=== PATIENT | male | born 1955 ===

== ENCOUNTER 2019-02-01 11:48 | Emergency (ER) | payer OTHER ==
[2019-02-01 12:39] LABS: Absolute Lymphocytes (CBC) 1.1 K/uL (0.7-4.9); Absolute Monocytes 0.6 K/uL (0.1-1.3); Absolute Neutrophil 4.3 K/uL (1.8-8.0); Basophils % 0.8 % (0-1.3); Eosinophils % 1.1 % (0-4.4); Hematocrit 48.2 % (39.6-49.0); MPV 8.8 fL (7.6-11.3); Monocytes % 9.7 % (3.3-12.3); RBC Red Blood Cell Count 5.28 M/uL (4.33-5.43)
[2019-02-01 12:40] LABS: Protime INR 0.95
[2019-02-01] MEDS ORDERED: NA CHLORIDE 0.9% 1,000 ML ONE (12:45)
[2019-02-01 12:57] LABS: ALT/SGPT 38 U/L (12-78); AST/SGOT 27 U/L (15-37); Albumin 3.9 g/dL (3.4-5.0); Alkaline Phosphatase 61 U/L (45-117); BUN Blood Urea Nitrogen 18 mg/dL (7-18); Bicarbonate 25 mmol/L (21-32); Bilirubin Direct < 0.1 mg/dL (0-0.2); Bilirubin Total 0.2 mg/dL (0.2-1.0); Glucose Level 116 mg/dL (74-106); Magnesium 2.3 mg/dL (1.8-2.4); NT PRO-BNP 37 pg/mL (<125); Potassium 4.3 mmol/L (3.5-5.1); Protein, Total 7.5 g/dL (6.4-8.2); Sodium Level 143 mmol/L (136-145); Troponin (Emerg Dept Use Only) < 0.02 ng/mL (0.0-0.045)
[2019-02-01 14:07] LABS: Urine Blood NEGATIVE (NEG); Urine Glucose NEGATIVE (NEG); Urine Protein NEGATIVE (NEG)
--- NOTE | 2019-02-01 14:36 | RAD REPORT ---
EXAM DESCRIPTION: Isaias Single View02/01/2019 1:27 pm CLINICAL HISTORY: Hypertension COMPARISON: none FINDINGS: The lungs appear clear of acute infiltrate. The heart is normal size IMPRESSION: No acute abnormalities displayed
--- NOTE | 2019-02-01 15:28 | RAD REPORT ---
EXAM DESCRIPTION: CT - Head Brain Wo Cont - 02/01/2019 3:02 pm CLINICAL HISTORY: Headache COMPARISON: None. TECHNIQUE: Computed axial tomography of the head was obtained. IV contrast was not requested. All CT scans are performed using dose optimization technique as appropriate and may include automated exposure control or mA/KV adjustment according to patient size. FINDINGS: An intracranial bleed is not seen . The ventricles are normal in caliber. No extra-axial fluid collection is noted. Fluid within the sinuses/ mastoids is not seen. IMPRESSION: No acute intracranial abnormality is seen. If patient's symptoms persist MRI of the bra in would be recommended.
--- NOTE | 2019-02-01 15:54 | ER ---
Nurse's Notes [facility] Name: Gaetano Atkins III Age: 63 yrs Sex: Male : 1955 Arrival Date: 02/01/2019 Time: 11:50 Bed 5 Private MD: Diagnosis: Hypertension;Near Syncope Presentation: 02/01 11:57 Presenting complaint: Patient states: SUBJECTIVELY HIGH BP AND NEAR-SYNCOPE. Transition bp of care: patient was not received from another setting of care. Onset of symptoms is unknown. Risk Assessment: Do you want to hurt yourself or someone else? Patient reports no desire to harm self or others. Initial Sepsis Screen: Does the patient meet any 2 criteria? No. Patient's initial sepsis screen is negative. Does the patient have a suspected source of infection? No. Patient's initial sepsis screen is negative. Care prior to arrival: None. 11:57 Method Of Arrival: Ambulatory bp 11:57 Acuity: PARI 3 bp Historical: - Allergies: 11:59 No Known Allergies; bp - Home Meds: 11:59 lisinopril 20 mg Oral tab 1 tab once daily [Active]; aspirin 81 mg Oral TbEC 1 tab once bp daily [Active]; - PMHx: 11:59 Hypertension; bp - Immunization history:: Adult Immunizations up to date. - Social history:: Smoking status: Patient/guardian denies using tobacco. - Ebola Screening: : No symptoms or risks identified at this time. Screenin:52 Abuse screen: Denies threats or abuse. Nutritional screening: No deficits noted. tr5 Tuberculosis screening: No symptoms or risk factors identified. Fall Risk No fall in past 12 months (0 pts). No secondary diagnosis (0 pts). IV access (20 points). Ambulatory Aid- None/Bed Rest/Nurse Assist (0 pts). Gait- Normal/Bed Rest/Wheelchair (0 pts) Mental Status- Oriented to own ability (0 pts). Total Nino Fall Scale indicates No Risk (0-24 pts). Assessment: 12:47 General: Appears comfortable, well groomed, Behavior is calm, cooperative, appropriate tr5 for age, Denies. 12:48 General: Denies fever, chills. Pain: Denies pain. Neuro: Reports dizziness, since Pt tr5 reports, "feeling a bit dizzy and lightheadded since yesterday." Denies weakness blurred vision difficulty swallowing, numbness headache. Cardiovascular: Reports diaphoresis, lightheadedness, Denies chest pain, fatigue, nausea, palpitations, shortness of breath, syncope, vomiting, Heart tones S1 S2 present Bruits absent Cardiac rub absent Capillary refill < 3 seconds Clubbing of nail beds is absent Patient's skin is warm and dry. Pulses are all present. Edema is absent. Chest pain is denied. Respiratory: Airway is patent Breath sounds are clear bilaterally. Denies cough, shortness of breath. GI: No signs and/or symptoms were reported involving the gastrointestinal system. : No signs and/or symptoms were reported regarding the genitourinary system. EENT: No signs and/or symptoms were reported regarding the EENT system. Musculoskeletal: Capillary refill < 3 seconds, Range of motion: intact in all extremities. 13:25 Reassessment: Patient and/or family updated on plan of care and expected duration. Pain la1 level reassessed. Patient is alert, oriented x 3, equal unlabored respirations, skin warm/dry/pink. Vital Signs: 11:45 BP 144 / 87 Standing; Pulse 88; tr5 11:59 BP 167 / 90; Pulse 86; Resp 16; Temp 97.8; Pulse Ox 95% ; Weight 86.18 kg; Height 5 ft. bp 11 in. (180.34 cm); 12:40 BP 152 / 78 Supine; Pulse 82; Resp 16; Pulse Ox 98% on R/A; tr5 12:42 BP 162 / 88 Sitting; Pulse 83; tr5 13:25 BP 177 / 94; Pulse 77; Resp 16; Pulse Ox 98% on R/A; la1 13:40 BP 152 / 89; Pulse 77; Resp 16; Pulse Ox 97% on R/A; la1 14:44 BP 139 / 85; Pulse 74; Resp 16; Pulse Ox 98% on R/A; la1 15:37 BP 156 / 98; Pulse 84; Resp 16; Pulse Ox 98% on R/A; la1 11:59 Body Mass Index 26.50 (86.18 kg, 180.34 cm) bp ED Course: 11:50 Patient arrived in ED. tw3 11:58 Triage completed. bp 12:00 Arm band placed on right wrist. bp 12:03 Chase Chicas PA is PHCP. [facility] 12:03 Wyatt Ross MD is Attending Physician. [facility] 12:11 Milton Lew, RN is Primary Nurse. la1 12:33 Initial lab(s) drawn, by me, sent to lab. Inserted saline lock: 20 gauge in right kj1 antecubital area, using aseptic technique. 12:53 Patient has correct armband on for positive identification. Pulse ox on. NIBP on. tr5 13:28 XRAY Chest (1 view) In Process Unspecified. EDMS 15:00 CT completed. Patient tolerated procedure well. Patient moved to CT. Patient moved back mw3 from CT. 15:02 CT Head Brain wo Cont In Process Unspecified. EDMS 16:02 No provider procedures requiring assistance completed. IV discontinued, intact, la1 bleeding controlled, No redness/swelling at site. Pressure dressing applied. Administered Medications: 12:42 Drug: NS 0.9% 1000 ml Route: IV; Rate: 1 bolus; Site: right antecubital; tr5 13:45 Follow up: IV Status: Completed infusion la1 14:45 CANCELLED (bp wnl): Norvasc 5 mg PO once [facility] Outcome: 15:54 Discharge ordered by MD. [facility] 16:03 Discharged to home ambulatory. la1 16:03 Condition: stable 16:03 Discharge instructions given to patient, Instructed on discharge instructions, follow up and referral plans. medication usage, Demonstrated understanding of instructions, follow-up care, medications, Prescriptions given X 1. 16:04 Patient left the ED. la1 Signatures: Dispatcher [employer] EDMS Chase Chicas PA PA [facility] Milton Lew, RN RN la1 Brigitte Odell tw3 Ramsey Amador RN RN Kassy Josue mw3 Francheska Dooley kj1 Felipe Wright RN RN tr5
--- NOTE | 2019-02-01 15:54 | EDPHYS ---
Physician Documentation [facility] Name: Gaetano Atkins III Age: 63 yrs Sex: Male : 1955 Arrival Date: 02/01/2019 Time: 11:50 Bed 5 Private MD: ED Physician Wyatt Ross HPI: 02/01 12:14 This 63 yrs old Male presents to ER via Ambulatory with complaints of High Blood jmm Pressure. 12:14 The patient has experienced near-syncope, felt faint. Onset: The symptoms/episode jmm began/occurred just prior to arrival, today. Associated injury: The patient did not suffer any apparent associated injury. Associated signs and symptoms: Pertinent positives: palpitations. This is a 63 year old male that presents to the ED with complaints of lightheadedness and elevated blood pressure over the past week. Patient states symptoms worsened when bending down to fix a car just prior to arrival. Patient states having 2 cups of coffee in the morning prior to the episode. Patient denies chest pain, denies shortness of breath. . Historical: - Allergies: 11:59 No Known Allergies; bp - Home Meds: 11:59 lisinopril 20 mg Oral tab 1 tab once daily [Active]; aspirin 81 mg Oral TbEC 1 tab once bp daily [Active]; - PMHx: 11:59 Hypertension; bp - Immunization history:: Adult Immunizations up to date. - Social history:: Smoking status: Patient/guardian denies using tobacco. - Ebola Screening: : No symptoms or risks identified at this time. ROS: 12:14 Constitutional: Negative for fever, chills, and weight loss. jmm 12:14 Cardiovascular: Positive for palpitations. 12:14 Respiratory: Negative for cough, shortness of breath. 12:14 Abdomen/GI: Negative for abdominal pain, nausea and vomiting, diarrhea. 12:14 Neuro: Positive for near syncope. 12:14 All other systems are negative. Exam: 12:14 Constitutional: This is a well developed, well nourished patient who is awake, alert, jmm and in no acute distress. Head/Face: atraumatic. Eyes: EOMI, no conjunctival erythema appreciated ENT: Moist Mucus Membranes Neck: Trachea midline, Supple Chest/axilla: Normal chest wall appearance and motion. 12:14 Back: Normal ROM Skin: General appearance color normal MS/ Extremity: Moves all extremities, no obvious deformities appreciated, no edema noted to the lower extremities Neuro: Awake and alert, normal gait Psych: Behavior is normal, Mood is normal, Patient is cooperative and pleasant 12:14 Cardiovascular: Rate: normal, Rhythm: regular, Pulses: no pulse deficits are appreciated. 12:14 Respiratory: the patient does not display signs of respiratory distress, Respirations: normal, Breath sounds: are clear throughout. 12:14 Abdomen/GI: Inspection: abdomen appears normal, Bowel sounds: normal, Palpation: abdomen is soft and non-tender. 12:36 ECG was reviewed by the Attending Physician. [facility] Vital Signs: 11:45 BP 144 / 87 Standing; Pulse 88; tr5 11:59 BP 167 / 90; Pulse 86; Resp 16; Temp 97.8; Pulse Ox 95% ; Weight 86.18 kg; Height 5 ft. bp 11 in. (180.34 cm); 12:40 BP 152 / 78 Supine; Pulse 82; Resp 16; Pulse Ox 98% on R/A; tr5 12:42 BP 162 / 88 Sitting; Pulse 83; tr5 13:25 BP 177 / 94; Pulse 77; Resp 16; Pulse Ox 98% on R/A; la1 13:40 BP 152 / 89; Pulse 77; Resp 16; Pulse Ox 97% on R/A; la1 14:44 BP 139 / 85; Pulse 74; Resp 16; Pulse Ox 98% on R/A; la1 15:37 BP 156 / 98; Pulse 84; Resp 16; Pulse Ox 98% on R/A; la1 11:59 Body Mass Index 26.50 (86.18 kg, 180.34 cm) bp MDM: 12:08 Patient medically screened. donna 15:50 Data reviewed: vital signs, nurses notes. Counseling: I had a detailed discussion with [facility] the patient and/or guardian regarding: the historical points, exam findings, and any diagnostic results supporting the discharge/admit diagnosis, lab results, radiology results, the need for outpatient follow up, to return to the emergency department if symptoms worsen or persist or if there are any questions or concerns that arise at home. ED course: Patient is alert and non toxic in appearance. No focal deficits appreciated. Patient is advised to follow up with PCP for htn management. Patient is otherwise given strict return precautions. Patient understood and agrees with the plan of care. . 06/02 12:17 Order name: Basic Metabolic Panel [facility] 02/01 12:17 Order name: CBC with Diff [facility] 02/01 12:17 Order name: LFT's [facility] 02/01 12:17 Order name: Magnesium; Complete Time: 13:05 [facility] 02/01 12:17 Order name: NT PRO-BNP; Complete Time: 13:05 [facility] 02/01 12:17 Order name: PT-INR; Complete Time: 13:05 [facility] 02/01 12:17 Order name: Troponin (emerg Dept Use Only); Complete Time: 13:05 [facility] 02/01 12:17 Order name: XRAY Chest (1 view); Complete Time: 14:37 [facility] 02/01 12:19 Order name: Basic Metabolic Panel; Complete Time: 13:05 [facility] 02/01 12:19 Order name: CBC with Automated Diff; Complete Time: 13:05 [facility] 02/01 12:19 Order name: Liver (Hepatic) Function; Complete Time: 13:05 [facility] 02/01 12:43 Order name: Urine Dipstick--Ancillary (enter results); Complete Time: 14:37 02/01 14:43 Order name: CT Head Brain wo Cont; Complete Time: 15:35 [facility] 02/01 12:17 Order name: EKG; Complete Time: 12:20 [facility] 02/01 12:17 Order name: Cardiac monitoring; Complete Time: 12:59 [facility] 02/01 12:17 Order name: EKG - Nurse/Tech; Complete Time: 12:28 [facility] 02/01 12:17 Order name: IV Saline Lock; Complete Time: 12:32 [facility] 02/01 12:17 Order name: Labs collected and sent; Complete Time: 12:32 [facility] 02/01 12:17 Order name: O2 Per Protocol; Complete Time: 12:59 [facility] 02/01 12:17 Order name: O2 Sat Monitoring; Complete Time: 12:59 [facility] 02 12:17 Order name: Orthostatic Blood Pressure; Complete Time: 12:42 jmm EC:36 Rate is 84 beats/min. Rhythm is regular. QRS Grant is Normal. NC interval is normal. QRS jmm interval is normal. QT interval is normal. No Q waves. T waves are Normal. No ST changes noted. Administered Medications: 12:42 Drug: NS 0.9% 1000 ml Route: IV; Rate: 1 bolus; Site: right antecubital; tr5 13:45 Follow up: IV Status: Completed infusion la1 14:45 CANCELLED (bp wnl): Norvasc 5 mg PO once xi Disposition: 02/02 07:49 Co-signature as Attending Physician, Wyatt Ross MD I agree with the assessment and donna plan of care. Disposition: 02/01/19 15:54 Discharged to Home. Impression: Hypertension, Near Syncope. - Condition is Stable. - Discharge Instructions: Hypertension, Near-Syncope. - Prescriptions for Norvasc 5 mg Oral Tablet - take 1 tablet by ORAL route once daily; 20 tablet. - Medication Reconciliation Form, Thank You Letter, Antibiotic Education, Prescription Opioid Use form. - Follow up: Private Physician; When: 2 - 3 days; Reason: Recheck today's complaints, Continuance of care, Re-evaluation by your physician. Signatures: Dispatcher [employer] EDWyatt May MD MD cha Mickail, Joel, PA PA jmm Attema, Lee RN RN la1 Ramsey Amador RN RN Felipe Carl RN RN tr5 Corrections: (The following items were deleted from the chart) 02/01 14:45 14:44 Norvasc 5 mg PO once ordered. uriel [facility] 16:04 15:54 02/01/2019 15:54 Discharged to Home. Impression: Hypertension; Near Syncope. la1 Condition is Stable. Forms are Medication Reconciliation Form, Thank You Letter, Antibiotic Education, Prescription Opioid Use. Follow up: Private Physician; When: 2 - 3 days; Reason: Recheck today's complaints, Continuance of care, Re-evaluation by your physician. uriel
--- NOTE | 2019-02-02 07:57 | EKG ---
Test Date: 2019-02-01 Test Time: 12:11:56 Interventional Physiatrist: SALVADOR MEASUREMENT RESULTS: Intervals: Rate: 84 SC: 144 QRSD: 104 QT: 364 QTc: 430 [place]: P: 30 SC: 144 QRS: -1 T: 5 INTERPRETIVE STATEMENTS: Normal sinus rhythm Normal ECG No previous ECG available for comparison Electronically Signed On 02-02-19 07:57:14 CDT by Jaun Calderon
== END 2019-02-01 16:04 | disposition home or self-care (01) ==
LOC: ER 11:48
DX: R55 Syncope and collapse (principal); I10 Essential (primary) hypertension; Z79.82 Long term (current) use of aspirin
CPT/HCPCS: 36415; 70450; 71045; 80048; 80076; 81003; 83735; 83880; 84484; 85025; 85610; 93005; 96360; 99284; J7030